=== PATIENT | male | born 1995 | race Caucasian/White ===

== ENCOUNTER 2016-08-12 15:37 | Emergency (ER) | payer OTHER | END 2016-08-12 16:46 | disposition home or self-care (01) | LOC: ER 15:37 | DX: S60.031A Contusion of right middle finger without damage to nail, initial encounter (principal); W22.03XA Walked into furniture, initial encounter; F17.210 Nicotine dependence, cigarettes, uncomplicated | CPT/HCPCS: 73130; 99283-25 ==